=== PATIENT | male | born 1950 | race Caucasian/White ===

== ENCOUNTER → 2018-06-09 07:59 | Outpatient (CLI) | payer MEDICARE, OTHER, SELFPAY ==
[2016-06-19 14:19] VITALS: BMI 25.9
--- NOTE | 2018-06-08 16:17 | LES_PTH ---
PATIENT: JUAN VILLARREAL LOC: [facility] U#:[id number] AGE/SX: 75/M ROOM: RE06/09/[address]: Dr. Morgan Batista MD : [id number] BED: DIS: SPEC #: [id number] RECD: 06/08/18 17:08 STATUS: EMIL SANDRA #: [id number] SORIN: 06/08/18 16:[address]: Morgan Batista DEPT: SURGICAL PATHOLOGY RECD BY: Pradeep Mora ENTERED: 06/09/18 11:18 SP TYPE: Lesion OTHR DR: Dr. 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 Negative for malignancy. SJ:luis a 06/10/18 MICROSCOPIC DESCRIPTION Slides are reviewed. GROSS DESCRIPTION Received in fixative is one container labeled with the patient's name and designated right facial lesion. The specimen consists of a round piece of moerno-white skin measuring 0.2 x 0.2 x 0.1 cm. The entire specimen is submitted in one cassette. / AM:luis a 06/09/18 TC: 5 CPT: 18736
== END ==
PROVIDERS: Family Provider Student in an Organized Health Care Education/Training Program; PCP Student in an Organized Health Care Education/Training Program; Referring Provider Otolaryngology Otolaryngology/Facial Plastic Surgery; Visit Provider Otolaryngology Otolaryngology/Facial Plastic Surgery
DX: L98.9 Disorder of the skin and subcutaneous tissue, unspecified (principal)
CPT/HCPCS: 88305

== ENCOUNTER → 2019-05-03 06:04 | Outpatient (CLI) | payer MEDICARE, OTHER, SELFPAY ==
[2019-04-26 08:48] VITALS: BMI 28.7
--- NOTE | 2019-05-03 09:26 | STRESSREP ---
Stress Test Report Exercise myocardial perfusion stress test. 69-year-old man with a history of previous coronary artery disease with angioplasty and stenting. Medications: Aspirin and rosuvastatin. Stress protocol: Resting EKG demonstrates sinus bradycardia with a rate of 54 bpm. Resting blood pressure is 138/80 mmHg. The patient exercised according to regular Teja protocol for a total duration of 9 minutes. The maximum heart rate attained was 146 bpm which was 97% of maximum predicted heart rate the maximum workload was 10.4 metabolic equivalents. At rest there were no ST or T wave changes noted to suggest ischemia at peak exercise upsloping ST changes only were noted with no meet the criteria for ischemia. The resting blood pressure is 138/80 with a peak blood pressure of 200/100. No clinical angina was noted rate-pressure product was 27,800. Myocardial perfusion protocol. 11.9 mCi of technetium 99m sestamibi was injected at rest. The patient exercised according to regular Teja protocol for a total duration of 9 minutes at peak exercise 33.3 mCi of technetium 99m sestamibi was injected stress images were obtained stress and rest images were reconstructed and compared in the short axis vertical long horizontal long axis. Gated images were also obtained. Perfusion SPECT analysis: Review of the stress images demonstrate normal uptake of tracer noted in all areas of the myocardium the resting images similarly demonstrate normal uptake of tracer noted in all areas of the myocardium. No reversibility is noted to suggest ischemia no previous infarct is noted. A tiny previous apical infarct cannot be completely excluded. Gated SPECT analysis: The gated ejection fraction is noted to be 63%. Conclusion: Normal exercise myocardial perfusion stress test at a high workload. Preserved ejection fraction.
== END ==
LOC: CVS 06:05
PROVIDERS: PCP Student in an Organized Health Care Education/Training Program; Referring Provider Internal Medicine Cardiovascular Disease; Visit Provider Internal Medicine Cardiovascular Disease
DX: Z95.5 Presence of coronary angioplasty implant and graft (principal)
CPT/HCPCS: 78452; 93017; A9500; A4216

== ENCOUNTER → 2020-04-25 10:54 | Outpatient (CLI) | payer MEDICARE, OTHER, SELFPAY ==
[2020-04-25 08:38] VITALS: BMI 28.7
[2020-04-25 11:56] LABS: AST(SGOT) 20 U/L (15-37); Alanine Aminotransfer ALT/SGPT 25 U/L (16-61); Albumin, Serum 3.7 g/dL (3.2-5.0); Alkaline Phosphatase 62 U/L (45-117); Anion Gap 4 (5-15); BUN 17 mg/dL (7-18); BUN/Creat Ratio 15.3 RATIO (10-20); Bilirubin, Direct 0.22 mg/dL (0.00-0.30); Calcium,Total 8.5 mg/dL (8.5-10.1); Chloride 108 mmol/L (98-107); Cholesterol 133 mg/dL (200); Creatinine, Serum 1.11 mg/dL (0.70-1.30); EST Glomerular Filtration Rate 69 mL/min (>60); Est Glom Filt Rate - Afr Amer 84 mL/min (>60); Globulin 3.4 g/dL (2.2-4.2); Glucose 92 mg/dL (74-106); High Density Lipoprotein 74 mg/dL; Potassium 4.1 mmol/L (3.5-5.1); Protein, Total 7.1 g/dL (6.4-8.2); Sodium Level 141 mmol/L (136-145); Thyroid Stim Hormone (TSH) 1.61 uIU/mL (0.358-3.74); Triglycerides 83 mg/dL; Very Low Density Lipoprotein 17 mg/dL (5-40)
== END ==
PROVIDERS: PCP Student in an Organized Health Care Education/Training Program; Referring Provider Internal Medicine Cardiovascular Disease; Visit Provider Internal Medicine Cardiovascular Disease
DX: E78.00 Pure hypercholesterolemia, unspecified (principal); E78.5 Hyperlipidemia, unspecified
CPT/HCPCS: 36415; 80048; 80061; 80076; 84443

== ENCOUNTER 2021-05-27 06:38 | Outpatient (CLI) | payer MEDICARE, OTHER, SELFPAY ==
--- NOTE | 2021-05-27 06:44 | ECHOD_ITS ---
Reason For Study: CAD/ASHD Procedure This was a 2D Doppler, Color Flow transthoracic echocardiogram. Exam performed portable in patient room. Left Ventricle Normal LV size. Mild concentric left ventricular hypertrophy. Left ventricular systolic function is normal. The estimated ejection fraction is 60 %. Stage 1 diastolic dysfunction. No regional wall motion abnormalities noted. Right Ventricle Normal right ventricle. Normal systolic function. Atria Normal left atrium. Normal right atrium. Tricuspid Valve Normal tricuspid valve. Unable to estimate RV systolic pressure due to insufficient tricuspid regurgitant envelope. Aortic Valve Normal aortic valve. Trisinus/trileaflet aortic valve. Pulmonic Valve Normal pulmonic valve. Great Vessels Normal aortic root. The pulmonary artery is normal size. Normal inferior vena cava. Pericardium/Pleural No pericardial effusion. MMode/2D Measurements & Calculations LVIDd: 4.8 cm IVSd: 1.2 cm Ao root diam: 3.3 cm LVIDs: 2.6 cm LVPWd: 1.2 cm RVDd: 3.2 cm FS: 44.6 % LAV(MOD-bp): 50.8 ml LA A4 area: 16.4 cm2 LA dimension(2D): 4.2 cm LAV(MOD-bp) Indexed: 25.7 ml/m2 LAV(MOD-sp2): 46.0 ml LAV(MOD-sp4): 50.2 ml RA A4 area: 14.0 cm2 Time Measurements MV dec time: 0.24 sec Doppler Measurements & Calculations MV E max galen: 52.1 cm/sec Lat Peak E' Galen: 4.5 cm/sec Med Peak E' Galen: 5.0 cm/sec MV A max galen: 86.9 cm/sec E/E' lat: 11.5 E/E' med: 10.5 MV E/A: 0.60 Ao V2 max: 104.5 cm/sec LV V1 max: 100.0 cm/sec PA V2 max: 127.0 cm/sec Ao max P.4 mmHg LV V1 max P.0 mmHg ECHO/Echo Complete Interpretation Summary Normal LV size. Left ventricular systolic function is normal. The estimated ejection fraction is 60 %. Mild concentric left ventricular hypertrophy. Stage 1 diastolic dysfunction. Ordering Physician: Kieran Justice Referring Physician: Kieran Justice Performed By: Meron Stevenson, PRISCILA, RVT
--- NOTE | 2021-05-27 18:16 | STRESSREP ---
Stress Test Report Exercise myocardial perfusion stress test. Patient with known coronary artery disease status post angioplasty and stenting. Stress protocol: Resting EKG demonstrates sinus bradycardia with a rate of 46 bpm normal intervals are noted resting blood pressure is 128/78 mmHg. The patient exercised according to regular Teja protocol for total duration of 9 minutes. Patient completed stage III of the Teja protocol. The maximum heart rate attained was 142 bpm which was 96% of maximum predicted heart rate the maximum workload was 10.1 metabolic equivalents. At rest there were no ST or T wave changes noted to suggest ischemia. Frequent premature ventricular complexes were noted during exercise as well as during recovery. Some periods of bigeminy were noted. At peak exercise upsloping ST changes were noted with did not meet the criteria for ischemia. No clinical angina was noted the patient did experience mild shortness of breath. The peak blood pressure was 196/76 mmHg. Myocardial perfusion protocol. 11.4 mCi of technetium 99m sestamibi was injected at rest. The patient exercised according to regular Teja protocol for 9 minutes and at peak exercise 33.8 mCi of technetium 99m sestamibi was injected stress images were obtained stress and rest images were reconstructed and compared in the short axis vertical long and horizontal long axis. Gated images were also obtained per Perfusion SPECT analysis: Review of the stress images demonstrate normal uptake of tracer noted in all areas of the myocardium. The resting images similarly demonstrate normal uptake of tracer noted in all areas of the myocardium. No areas of reversibility are noted to suggest ischemia and no previous infarct is noted. Gated SPECT analysis: The gated ejection fraction is 54%. Conclusion: Normal exercise myocardial perfusion stress test at a high workload. Frequent premature ventricular complexes noted asymptomatic. Preserved ejection fraction.
== END 2021-05-27 23:59 | disposition home or self-care (01) ==
LOC: CVS 06:40
PROVIDERS: PCP Student in an Organized Health Care Education/Training Program; Referring Provider Internal Medicine Cardiovascular Disease; Visit Provider Internal Medicine Cardiovascular Disease
DX: I25.10 Atherosclerotic heart disease of native coronary artery without angina pectoris (principal); I49.3 Ventricular premature depolarization
CPT/HCPCS: 78452; 93017; 93225; 93226; 93306; A9500; A4216

== ENCOUNTER 2022-07-06 09:00 | Outpatient (RCR) | payer MEDICARE, OTHER, SELFPAY ==
--- NOTE | 2022-01-29 11:48 | HP.PTEVAL ---
Patient's Visit Information ELIEL DEL RIO is a 72 year old M referred to Physical Therapy by UMBERTO SHEPPARD with a diagnosis of Gluteus charles and minimus tear. Date of Evaluation: 01/29/22 Physical Therapist: Kevin Melgar, PT, ANKUR, SCS, CSCS - Visit Plan Frequency: 2x /Week Duration: 3 Months Plan: plan to see Eliel 1-2xtimes a week depending on progress. Once non weight bearing restriction are over will progress per protocol - Subjective Mr. Del Rio is a pleasant 75yo who was referred to our care by Dr Gill with a diagnosis of left endoscopic gluteus charles and minimus repair with graft. Eliel states that he began to experience left hip pain about a year and half ago. Her was walking up a slight grade and noticed immediate onset of hip pain. He followed up with his back dr as he had a microdiscectomy in 6-7 years prior who then referred to another hip doctor and eventually was matched with Dr Gill. 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 His goals are to return to playing golf in the spring if possible. Eliel Pmhx is significant for cardia issues were he had a stent placed 8 years ago and has had no problems since. - Pain Left Hip Pain Intensity (Out of 10): 0 Pain Intensity Range: 0, 4 Comment: Relatively low at this time - Objective Mr. Del Rio is ambulating with a walker non weight bearing on his left hip, he is no apparent distress. His incision sight is healing well with no seepage or drainage. It was hard to tell if his sutures were removed or not and I will take a closer look next visit, if so we can remove and replace with stir strips. PROM of his hips are a follows: Int/ext rotation seated is 45/15 R 25/30 L. MMT R knee ext 42 L 37 knee flexion 26/24. Hip Flexion 24 R/ 23L all other MMT was deferred to the healing process - Balance/Special Test Scores Lower Extremity Functional Score: 11 - Goals Goal 1:: Patient will be return demo HEP and understand precautions Goal Time Frame: 1 Week Goal 2:: Improve ROM by 10% Goal Time Frame: 2-4 Weeks Goal 3:: Per protocol will strength as appropriate Goal Time Frame: 6-8 Weeks - Rehabilitation Potential Physical Therapy Diagnosis: SAme Rehabilitation Potential: Good - Anticipated Interventions Patient/Client Instruction: Educate patient on: Condition, Plan of Care For the Purpose of:: To decrease pain, To increase ROM, To improve safety with gait Therapeutic Exercise to Include: Strength training, Endurance training, Gait and locomotor training For the Purpose of:: To increase ROM, To assume or resume ADL's Manual Therapy Techniques to Include: Massage, Mobilization, Passive ROM For the Purpose of:: To decrease pain, To increase ROM, To improve safety with gait Thank you for the opportunity to evaluate your patient. For Medicare and Medicare HMO plans, please review the plan of care and approve it. It will need to be FAXED BACK to us at [phone] for Medicare purposes. For Medicare only, by signing this I certify the plan of care. Please let me know if there are questions or concerns regarding this plan of care. Physician Signature: Date:
--- NOTE | 2022-07-06 09:43 | HP.PTDCSUM ---
It has been my pleasure to treat ROCIO VILLARREAL referred by UMBERTO SHEPPARD, with the diagnosis of Gluteus charles and minimus tear for a total of 20 visit(s). Discharge Date: 07/06/22 Please see the following information for a summary of their discharge status. Subjective: progressing well I see tomorrow and fly to [place] tomorrow afternoon. ) pain at rest occasional pain 1-2 with increased activity. Pain in my right ankle is limiting activity at times. Left Hip Pain Intensity (Out of 10): 0 % Improvement: 90 Objective/Function: R int rot 40 ext 25 L 40 35. Gave priformis stretching for r hip. R leg ext 73/ L leg Curl 46 L 73/36 R Hip Flx 41 l hip 43 R Hip Abd 22 L 26. Goal 1:: Patient will be return demo HEP and understand precautions Goal Progress: Goal Met Goal 2:: Improve ROM by 10% Goal Progress: Goal Met Goal 3:: Per protocol will strength as appropriate Goal Progress: Progressing Plan: discharge to home program and modified routine at gym Discharge Comments: Will check in with rocio from time to time. R ankle is limiting activity level ie running walking far distances If there are questions or concerns regarding this patient's physical therapy, please feel free to call me at [phone]. Thank you for the referral of this patient. Sincerely, Kevin Melgar, PT, ANKUR, SCS, CSCS Balance/Gait/Functional tests - Balance/Special Test Scores Lower Extremity Functional Score: 65
== END 2022-07-06 19:00 | disposition home or self-care (01) ==
LOC: PT 09:00
PROVIDERS: PCP Student in an Organized Health Care Education/Training Program; Referring Provider Physician Assistant Medical; Visit Provider Physician Assistant Medical
DX: M70.62 Trochanteric bursitis, left hip (principal)
CPT/HCPCS: 97014; 97110; 97140; 97161; 97164; G0283

== ENCOUNTER 2024-05-24 10:00 | Outpatient (RCR) | payer MEDICARE, OTHER, SELFPAY ==
--- NOTE | 2024-04-21 07:37 | HP.PTEVAL ---
Patient's Visit Information Visit Information Visit Information: JUAN VILLARREAL is a 74 year old M referred to Physical Therapy by Dr. 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 Date of Evaluation: 04/19/24 Physical Therapist: Lex Worthy DPAntonio Visit Plan Frequency: 2-3x /Week Duration: 6 Weeks Plan: 1) progressive WBing in CAM boot 2) ankle DF/PF ROM as tolerated, NO EVR/INV 3) edema control, both massage and vaso 4) GAIT training with FWW progressing to no AD with CAM boot Subjective Subjective: Pt. is here today for his initial evalation with diagnosis of R total ankle replacement. DOS: 03/08/24. Pt. arrives on knee scooter. He reports overall doing well. No major issues. He saw physician whom was pleased with proress. Pt. denies N/T in either LE. Pt. reports doing some ankle pumps as home. Pt. is is CAM boot and iwll be in for another 6 weeks. Pt. is hopeful to get back to all recreational walking and working out without limitations. Pt. is sleeping well without issues. Pain R ankle: Pain Intensity (Out of 10): 2 Pain Intensity Range: 1 and 6 Objective Objective: POSTURE: Increased wt. shift to L ankle. Pt. is able to correct with VCing. PAL[place]: Pt. has good well healed incision. Marked increase in edema. 6 cm difference from side to side throughout ankle and foot. NEURO: Pt. has normal sensation and normal achilles DTR. ROM: R ankle: INV/EVR not tested. DF 5 deg, PF 32deg. Marked swelling noted. MMT: DF 8#, PF 13#, INV/EVR not tested. 4/5 throughout BLEs. GAIT: Pt. was able to ambulate with FWW with hesitant WBing on his RLE, but was able to tolerate with slight increase in symptoms. STAIRS: Step to pattern noted. Balance/Special Test Scores Lower Extremity Functional Score: 0 Goals Goal 1:: LTG: PT. to be I with HEP. Goal Time Frame: 4-6 Weeks Goal 2:: STG: Pt. to have increased DF/PF by 10deg in each direction. Goal Time Frame: 2-4 Weeks Goal 3:: LTG: Pt. to ambulate with full WBing with CAM boot on without use of AD. Goal Time Frame: 4-6 Weeks Goal 4:: LTG: Pt. to have full strength throughout R ankle Goal Time Frame: 6-8 Weeks Goal 5:: STG: PT. to have symmetrical edema between BLEs. Goal Time Frame: 2-4 Weeks Rehabilitation Potential Physical Therapy Diagnosis: Pt. has signs and symptoms consistent with R total ankle replacement. Pt. has marked hypombility, weakness and difficulty with walking. Rehabilitation Potential: Excellent Anticipated Interventions Patient/Client Instruction: Educate patient on: Condition, Plan of Care, Risk Factors and Benefits of Fitness Program For the Purpose of:: To improve decision making, To facilitate caregiver knowledge, To improve self management, To prevent re-injury and To improve ability to perform tasks related to life management Therapeutic Exercise to Include: Strength training, Power training, Balance training, Flexibilty training and Gait and locomotor training For the Purpose of:: To decrease pain, To decrease swelling/inflammation, To increase ROM, To improve nutrient delivery to tissue, To increase oxygenation perfusion and To improve muscle performance and motor function Manual Therapy Techniques to Include: Soft tissue mobilization For the Purpose of:: To decrease pain, To decrease swelling/inflammation and To increase ROM Vasopneumatic device: Yes For the Purpose of:: To decrease pain, To increase ROM, To improve nutrient delivery to tissue and To increase oxygenation perfusion Text: Thank you for the opportunity to evaluate your patient. For Medicare and Medicare HMO plans, please review the plan of care and approve it. It will need to be FAXED BACK to us at [phone] for Medicare purposes. For Medicare only, by signing this I certify the plan of care. Please let me know if there are questions or concerns regarding this plan of care. Physician Signature: Date:
--- NOTE | 2024-05-24 10:23 | HP.PTREVAL ---
Re-Evaluation Intro: Dr. 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 Please see the progress note below for an update on the physical therapy plan of care! Subjective Subjective: Pt. reports no pain today. Pt. arrives in CAM boot. Pt. reports being 80% better overall. He is getting around the house well and community without issues. Still has some swelling but no pain. Objective Objective/Function: MMT: R ankle: DF 41.2#, 52.6# AROM: DF 5deg, PF 41deg, PROM: DF 8deg, PF 48deg. GAIT: Pt. has normal gait pattern with use of CAM boot. GAIT without, patient has slight early heel off on R side. STIARS: without boot, great with ascending, slight early heel off during loading R LE with descending. Overall he is doing well, still has some increased swelling, I talked to him about elevating at times. He is to follow up with physician next week. He is planning on going to [place], but would only do so if physician thinks it s a good idea., Plan Plan Plan: Pt. to follow up with physician then let PT know how they wish to porceed. Balance/Gait/Functional tests Balance/Special Test Scores Lower Extremity Functional Score: 60 Goals Goals Goal 1:: LTG: PT. to be I with HEP. Goal Time Frame: 4-6 Weeks Goal Progress: Goal Met Goal 2:: STG: Pt. to have increased DF/PF by 10deg in each direction. Goal Time Frame: 2-4 Weeks Goal Progress: Goal Met Goal 3:: LTG: Pt. to ambulate with full WBing with CAM boot on without use of AD. Goal Time Frame: 4-6 Weeks Goal Progress: Goal Met Goal 4:: LTG: Pt. to have full strength throughout R ankle Goal Time Frame: 6-8 Weeks Goal Progress: Goal Met Goal 5:: STG: PT. to have symmetrical edema between BLEs. Goal Time Frame: 2-4 Weeks Goal Progress: Progressing Anticipated Interventions Anticipated Interventions Patient/Client Instruction: Educate patient on: Condition, Plan of Care, Risk Factors and Benefits of Fitness Program For the Purpose of:: To improve decision making, To facilitate caregiver knowledge, To improve self management, To prevent re-injury and To improve ability to perform tasks related to life management Therapeutic Exercise to Include: Strength training, Power training, Balance training, Flexibilty training and Gait and locomotor training For the Purpose of:: To decrease pain, To decrease swelling/inflammation, To increase ROM, To improve nutrient delivery to tissue, To increase oxygenation perfusion and To improve muscle performance and motor function Manual Therapy Techniques to Include: Soft tissue mobilization For the Purpose of:: To decrease pain, To decrease swelling/inflammation and To increase ROM Vasopneumatic device: Yes For the Purpose of:: To decrease pain, To increase ROM, To improve nutrient delivery to tissue and To increase oxygenation perfusion Re-Evaluation Ending Re-evaluation ending: Please do not hesitate to contact me at [phone] by phone or if you have questions or concerns regarding this new plan of care! Sincerely, Lex Worthy DPT
== END 2024-05-24 19:00 | disposition home or self-care (01) ==
LOC: PT 10:00
PROVIDERS: PCP Student in an Organized Health Care Education/Training Program; Referring Provider Orthopaedic Surgery; Visit Provider Orthopaedic Surgery
DX: M19.071 Primary osteoarthritis, right ankle and foot (principal); M21.541 Acquired clubfoot, right foot
CPT/HCPCS: 97016; 97110; 97140; 97161; 97164; 97530